=== PATIENT | female | born 1965 | race Caucasian/White ===

== ENCOUNTER 2024-10-13 10:45 | Outpatient (AMB) | payer BC, SELFPAY ==
--- NOTE | 2024-10-13 11:17 | HO.SPINEOV ---
Intake Visit Reasons: severe stenosis Intake Note: Ms. Carey Heard is here today c/o upper back and neck pain. MRI done @ [facility] (brought disc). Capacity Planning Analyst Required: No Assessment & Plan Assessment & Plan (1) Cervical radiculopathy: Code(s): M54.12 - Radiculopathy, cervical region Category: Medical Plan Dear Awais, Thank you for referring Mrs Carey Heard to our office today. She is a very nice 59-year-old female presents to the office today for evaluation of a chronic pain in the upper part of her back and neck, that has given her intermittent pain, primarily down her left arm historically but more recently going down her right arm as well. Through the years she has generally dealt with this by taking Motrin or anti-inflammatories and just trying to get through it. Unfortunately over the last few months the symptoms have significantly progressed. She is in constant pain when she moves her head side to side. At night she has been waking up with severe pain going down both of her arms. It generally stops at about her wrist but does go through her elbow and her shoulder as it passes down her arm. No specific weakness in the hands or myelopathic complaints. She has not yet done any conservative treatment other than generalized stretching, Motrin, leave and moist heat on her neck. She had an MRI done in the [facility] showing possible spinal cord compression at C4-5 and was sent here urgently. PMH: History of cholecystectomy, high cholesterol, hypothyroidism, hypertension but other than that she is healthy Social hx: She might smoke a few cigarettes a week, does not drink any significant amount of alcohol and will occasionally use a marijuana gummy but nothing regular Medications: Levothyroxine, lisinopril, atorvastatin and an SSRI Allergies: None Physical exam: Patient is awake alert oriented x3, no acute distress but tearful at times, strength is full bilateral upper and lower extremities, gait is normal, tandem gait walking reveals she has excellent balance. Reflexes are normal at the patella Achilles biceps triceps. Babinski's are downgoing. No Rich's sign or clonus in the ankles. Imaging review: Cervical MRI done at [facility] shows multilevel degenerative disc disease at C4-5, C5-6 and C6-7. She has moderate to severe stenosis at C4-5 and C5-6. There is bilateral neuroforaminal stenosis at both of these levels. There is neuroforaminal narrowing of the left C6-7. There is question of a cord signal change on the left in the dorsal column just behind the body of C5. Impression: 59-year-old female with chronic neck and upper back pain with bilateral upper extremity cervical radiculopathy. The pain has been coming on for years and significantly affects her quality of life. She was very active prior to all of this starting she has had to curtail many of the activities that make her life enjoyable. I suspect this is coming from C4-5 and C5-6 as these are the worst of the 3 areas that she has in the cervical spine that look degenerative. There is question of spinal cord signal change behind the body of C5 that maybe myelopathic, but on exam and history, there is no myelopathy. This just could be artifact or she is asymptomatic from it. Right now the main issue is pain and discomfort which is generally coming from the nerve roots as they exit the spine. She has just started the process of conservative treatment so I think we should at least let her go through the physical therapy and see how that goes but I did tell her that I anticipate at some point she may need an operation to fix the degenerative discs. I would like to see her back in 6 weeks after she does physical therapy and we can reassess. In the interim I will review the imaging with Dr. Maldonado to see if we can better isolate a surgical target if she ends up needing surgery. Thank you for allowing us to care for your patient. The total time spent with this visit with this patient was 45 minutes reviewing history, physical exam, service imaging review, and implementation of treatment plan or further diagnostic testing Gavino Maldonado MD,PhD [facility] Coding Level of Care Code New Pt Level 4 (15670) Diagnoses Cervical radiculopathy M54.12
--- OUTSIDE RECORDS SUMMARY | 2024-10-13 11:31 | XMS_ITS | Clinical Summary ---
Author Organization [facility] Address [address] [place] [address] Care Team Providers Care Cardiac Specialist Name Role Phone Pcp, No Primary Care Provider Unavailabl e Allergies No known active allergies Medications PARoxetine (PAXIL) 40 MG tablet Take 40 mg by mouth every morning. Active Social History Tobacco Use Types Packs/Day Years Used Date Smoking Tobacco: Some Days Comments Unknown Sex and Gender Information Value Date Recorded Sex Assigned at Not on file Legal Sex Female 12:27 PM EST Gender Identity Not on file Sexual Orientation Not on file Last Filed Vital Signs Vital Sign Reading Time Taken Comments Blood Pressure 157/87 05/28/2017 12:40 PM EST Pulse 77 05/28/2017 12:40 PM EST Temperature 37.1 ??C (98.8 ??F) 05/28/2017 12:[address] Respiratory Rate - - Oxygen Saturation 98% 05/28/2017 12:40 PM EST Inhaled Oxygen Concentration - - Weight 71.7 kg (158 lb) 05/28/2017 12:40 PM EST Height - - Body Mass Index - - Plan of Treatment Health Maintenance Due Date Last Done Comments Hepatitis C Virus Screening 1966 HIV Screening 1979 DTaP/Tdap/Td Vaccines (1 - Tdap) 1985 Hepatitis B Vaccines (1 of 3 - 19+ 3-dose series) 06/1984 Pap Smear (Ages 21-65) 1987 Mammogram 2006 Colonoscopy 2011 Pneumococcal Vaccines 50+ (1 of 1 - PCV) 01/03/2016 Zoster (Shingles) Vaccine (1 of 2) 01/03/2016 COVID-19 Vaccine ( - 2023-25 season) 2024 Influenza Vaccine 2025 Insurance [facility] - HMO Care Teams Cardiac Specialist Relationship Specialty Start Date End Date Pcp, No PCP - General General Medicine 05/28/17
--- OUTSIDE RECORDS SUMMARY | 2024-10-13 11:31 | XMS_ITS | Encounter Summary ---
Author Organization [facility] Address [address] [place] [address] Care Team Providers Care Mixing Plant Dumper Name Role Phone Pcp, No Primary Care Provider Unavailabl e Reason for Visit * Reason Onset Date Comments Follow-up 05/31/2017 cc, lvm Encounter Details Date Type Department Care Team (Late st Contact Info) Description 05/31/2017 Telephone [facility] [address] [phone] Nicolette Laura, [address] [place] [address] Follow-up (cc, lvm) Social History Tobacco Use Types Packs/Day Years Used Date Smoking Tobacco: Some Days Comments Unknown Sex and Gender Information Value Date Recorded Sex Assigned at Not on file Legal Sex Female 12:27 PM EST Gender Identity Not on file Sexual Orientation Not on file documented as of this encounter Plan of Treatment Not on file documented as of this encounter Visit Diagnoses Not on filedocumented in this encounter Care Teams Mixing Plant Dumper Relationship Specialty Start Date End Date Pcp, No PCP - General General Medicine 05/28/17 documented as of this encounter
== END 2024-10-13 12:10 | disposition home or self-care (01) ==
PROVIDERS: PCP Nurse Practitioner Family; Visit Provider Physician Assistant
DX: M54.12 Radiculopathy, cervical region (principal)
CPT/HCPCS: 99204

== ENCOUNTER 2024-11-21 12:35 | Outpatient (REF) | payer OTHER, SELFPAY ==
--- NOTE | ~2024-11-21 | XR_ITS ---
CLINICAL HISTORY: M54.12 - Radiculopathy, cervical region --- Additional Notes or Special Instructions: a p, lateral with flex ext views 4 views cervical spine Comparison: None provided Findings: Normal vertebral body alignment. Alignment is maintained in the sagittal plane with flexion and extension. No acute fractures or dislocation. Is multiple level degenerative disc, facet, and uncovertebral joint change. No prevertebral soft tissue swelling. IMPRESSION: No acute findings. This document has been electronically signed by: Fidencio Silva MD on 11/22/2024 08:46:28
== END 2024-11-21 12:36 | disposition home or self-care (01) ==
LOC: HO.HOSX 12:35
PROVIDERS: PCP Nurse Practitioner Family; Visit Provider Physician Assistant
DX: M54.12 Radiculopathy, cervical region (principal)
CPT/HCPCS: 72050

== ENCOUNTER 2024-11-21 12:35 | Outpatient (AMB) | payer OTHER, SELFPAY ==
--- NOTE | 2024-11-21 13:08 | HO.SPINEOV ---
Intake Visit Reasons: 6 week f/u/? sx Intake Note: Ms. Patino is here today for her 6 week F/u after PT. 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 She is continuing to have severe midline neck pain radiating down both arms and into her subscapular area. She underwent physical therapy now for few weeks but it has only been making things worse. As outlined in my previous note she has done multiple medication trials, she has been taking oxycodone and Tylenol No. 3 very sporadically because she does not like the way it makes her feel. She tried the route of anti-inflammatories but it only gave her significant gastritis issues. She will take Tylenol as needed. Dr. Maldonado and I sat down and reviewed her imaging again. Her MRI [place] and her x-ray done here at [facility] shows multilevel degenerative disc disease in the cervical spine. Because she has bilateral arm pain, we think that the 2 levels that are indicated for surgery would be C4-5 and C5-6 as those are both areas that have bilateral neuroforaminal stenosis and central canal stenosis with cord signal change. We consider doing C6-7, but there is only foraminal narrowing on the left and in light of her bilateral arm pain we think that we can get most of what we need to accomplished with just doing C4-5 and C5-6. The patient is agreeable. She is very tearful and this has been a significant alteration in her quality of life. She has done all the conservative management that we can ask of her. We have tentatively booked her for anterior cervical fusion C4-5 and C5-6 on December 31. The patient was given risk and benefits of surgery including but not limited to infection, hematoma, nerve injury, durotomy, weakness, persistent pain. We discussed that if undergoing anterior cervical fusion there may be trachea or esophageal injury, hoarseness, or difficulty swallowing. There is a risk of pseudoarthrosis or instrumentation failure if undergoing cervical fusion. We also reviewed the option to continue with conservative treatment and patient wishes to proceed with surgery. They are aware they should stop NSAIDs 7 days prior to surgery. All questions were answered to the best of our ability. If there is anything about this patient's medical history that we have overlooked or concerns you have about us proceeding with surgery we would appreciate any input you can offer Total amount of time spent in this visit was 20 minutes in discussion of symptoms, cervical MRI and x-ray imaging results and subsequent plan of care Gavino Maldonado MD,PhD [facility] Orders: Orders XR cervical spine 4V Today M54.12 - Radiculopathy, cervical region Coding Level of Care Code Est Pt Level 3 (84267) Diagnoses Cervical radiculopathy M54.12
== END 2024-11-21 14:27 | disposition home or self-care (01) ==
LOC: HO.HNS 12:36
PROVIDERS: PCP Nurse Practitioner Family; Visit Provider Physician Assistant
DX: M54.12 Radiculopathy, cervical region (principal)
CPT/HCPCS: 99213

== ENCOUNTER → 2024-11-21 13:33 | Outpatient (BNV) | payer OTHER, SELFPAY | PROVIDERS: PCP Nurse Practitioner Family; Visit Provider Specialist | DX: M54.12 Radiculopathy, cervical region (principal) | CPT/HCPCS: 72050 ==

== ENCOUNTER 2024-12-31 05:55 | Day surgery (SDC) | payer OTHER, SELFPAY ==
--- OUTSIDE RECORDS SUMMARY | 2024-12-16 13:40 | XMS_ITS | Encounter Summary ---
Author Organization [facility] Address [address] [place] [address] Care Team Providers Care Linen Room Supervisor Name Role Phone Pcp, No Primary Care Provider Unavailabl e Reason for Visit * Reason Onset Date Comments Follow-up 05/31/2017 cc, lvm Encounter Details Date Type Department Care Team (Late st Contact Info) Description 05/31/2017 Telephone [facility] [address] [phone] Nicolette Laura, [address] [place] [address] Follow-up (cc, lvm) Social History Tobacco Use [...] on filedocumented in this encounter Care Teams Linen Room Supervisor Relationship Specialty Start Date End Date Pcp, No PCP - General General Medicine 05/28/17 documented as of this encounter
[2024-12-17 13:09] VITALS: BP 109/65; PULSE 65; RESP 18; O2SAT 99; BMI 23.3
--- NOTE | 2024-12-17 13:28 | HO.ANESPROP2 ---
Documented by User: Marisol Santoyo NP 12/30/24 13:22 HPI - Anesthesia Eval Consult details Narrative: 59 yr old female for C4-5, C5-6 Ant Cerv Discectomy w/ fusion No CP/SOB with ADLs, exercise limited 2/2 neck pain. No recent illness. [facility] Active Problems Active Problems: All Active Problems Cervical radiculopathy (Acute) Past Medical History Medical History Arthritis Family history of multiple sclerosis Depression Lumbar radiculopathy Hyperlipidemia Hypothyroid Cervical stenosis of spine HTN (hypertension) Chronic back pain NORMA (generalized anxiety disorder) Functional capacity: independent ambulation Family History Family history of problems with anesthesia: No Surgical History Surgical History H/O colonoscopy Hx laparoscopic cholecystectomy History of Problems with Anesthesia: No Social History Social History Are you a primary care connector to a significant other at home: No Do you presently have visiting nurse or other home services: No Comment: advised of trip hazard Patient Tobacco Use Status: Former Tobacco user Tobacco use type: Cigarette Cigarettes Per Day: 10 Years Smoked: 40 Smoked in Last 30 Days: Yes Use of substances other than those prescribed or required for medical reasons: Yes Substance Use Type Other:: gummies Substance Use Frequency: Occasionally Have you been hit, kicked, punched, or otherwise hurt by someone within the past year? If so, by whom?: No Spiritual Healthcare Practices: no Yazdanism Healthcare Practices: no Cultural Healthcare Practices: no Are you DNR?: No Advance Directives Information Provided: Yes (as above noted) Advance Directives on File: No FDLMP: n/a Poor oral hygiene: No (uses Fixodent) Meds Allergies Allergy/AdvReac Type Severity Reaction Status Date / Time amoxicillin Allergy Intermediate Vomiting Verified 12/31/24 06:09 Home Medications ?Medication ?Instructions ?Recorded ?Confirmed ?Last Taken ?Type atorvastatin 10 mg tablet 10 mg PO BEDTIME 12/16/24 12/31/24 Unknown History cholecalciferol (vitamin D3) 125 125 mcg PO QAM 12/16/24 12/31/24 Unknown History mcg (5,000 unit) tablet (Vitamin D3) desvenlafaxine succinate 50 mg 100 mg PO QAM 12/16/24 12/31/24 Unknown History tablet,extended release 24 hr diazepam 5 mg tablet 2.5 - 5 mg PO BID PRN muscle spasm 12/16/24 12/31/24 12/31/24 04:30 History estradiol 0.1 mg/24 hr semiweekly 1 patch transdermal 2XW 12/16/24 12/31/24 Unknown History transdermal patch (Harini) levothyroxine 50 mcg tablet 50 mcg PO QAM 12/16/24 12/31/24 12/31/24 04:30 History lisinopril 5 mg tablet 5 mg PO QAM 12/16/24 12/31/24 Unknown History multivitamin 1 tab PO QAM 12/16/24 12/31/24 Unknown History oxycodone 5 mg tablet 5 mg PO Q6H PRN pain 12/16/24 12/31/24 Unknown History trazodone 50 mg tablet 25 - 50 mg PO BEDTIME PRN Anxiety 12/16/24 12/31/24 Unknown History acetaminophen 300 mg-codeine 60 mg 1 tab PO Q6H PRN Pain 12/17/24 12/31/24 Unknown History tablet acetaminophen 500 mg tablet 500 mg PO Q6H PRN Pain 12/17/24 12/31/24 Unknown History Exam Height,Weight and Vital Signs: Height 5 ft 5 in Weight 63.503 kg Last Vital Signs Pulse 65 12/17/24 13:09 Resp 18 12/17/24 13:09 BP 109/65 12/17/24 13:09 Pulse Ox 99 12/17/24 13:09 O2 Del Method Room Air 12/17/24 13:09 Airway Mallampati Class: II TM Dist: >3cm Neck ROM: Limited (backward extension) Denture: Upper Loose/Missing/Broken Teeth: Yes and Lower (M molars b/l) Heart: RRR Lungs: CTAB Assessment and Plan Final Anesthetic Review Family History of Problems with Anesthesia: No History of Problems with Anesthesia: No Documented by User: Candice Bills MD 12/31/24:07 [facility] Past Medical History Medical History Arthritis Family history of multiple sclerosis Depression Lumbar radiculopathy Hyperlipidemia Hypothyroid Cervical stenosis of spine HTN (hypertension) Chronic back pain NORMA (generalized anxiety disorder) Surgical History Surgical History H/O colonoscopy Hx laparoscopic cholecystectomy Social History Social History Are you a primary care connector to a significant other at home: No Do you presently have visiting nurse or other home services: No Comment: advised of trip hazard Patient Tobacco Use Status: Former Tobacco user Tobacco use type: Cigarette Cigarettes Per Day: 10 Years Smoked: 40 Smoked in Last 30 Days: Yes Use of substances other than those prescribed or required for medical reasons: Yes Substance Use Type Other:: gummies Substance Use Frequency: Occasionally Have you been hit, kicked, punched, or otherwise hurt by someone within the past year? If so, by whom?: No Spiritual Healthcare Practices: no Yazdanism Healthcare Practices: no Cultural Healthcare Practices: no Are you DNR?: No Advance Directives Information Provided: Yes (as above noted) Advance Directives on File: No FDLMP: n/a Poor oral hygiene: No (uses Fixodent) Meds Allergies Allergy/AdvReac Type Severity Reaction Status Date / Time amoxicillin Allergy Intermediate Vomiting Verified 12/31/24 06:09 Home Medications ?Medication ?Instructions ?Recorded ?Confirmed ?Last Taken ?Type atorvastatin 10 mg tablet 10 mg PO BEDTIME 12/16/24 12/31/24 Unknown History cholecalciferol (vitamin D3) 125 125 mcg PO QAM 12/16/24 12/31/24 Unknown History mcg (5,000 unit) tablet (Vitamin D3) desvenlafaxine succinate 50 mg 100 mg PO QAM 12/16/24 12/31/24 Unknown History tablet,extended release 24 hr diazepam 5 mg tablet 2.5 - 5 mg PO BID PRN muscle spasm 12/16/24 12/31/24 12/31/24 04:30 History estradiol 0.1 mg/24 hr semiweekly 1 patch transdermal 2XW 12/16/24 12/31/24 Unknown History transdermal patch (Harini) levothyroxine 50 mcg tablet 50 mcg PO QAM 12/16/24 12/31/24 12/31/24 04:30 History lisinopril 5 mg tablet 5 mg PO QAM 12/16/24 12/31/24 Unknown History multivitamin 1 tab PO QAM 12/16/24 12/31/24 Unknown History oxycodone 5 mg tablet 5 mg PO Q6H PRN pain 12/16/24 12/31/24 Unknown History trazodone 50 mg tablet 25 - 50 mg PO BEDTIME PRN Anxiety 12/16/24 12/31/24 Unknown History acetaminophen 300 mg-codeine 60 mg 1 tab PO Q6H PRN Pain 12/17/24 12/31/24 Unknown History tablet acetaminophen 500 mg tablet 500 mg PO Q6H PRN Pain 12/17/24 12/31/24 Unknown History Assessment and Plan Assessment Anesthesia Assessment: Anesthesia Plan Discussed and Chart Reviewed Final Anesthetic Review NPO: Yes ASA Class: II Final Preanesthetic Review: No Changes in Pt Med Stat, Meds/Allgs Chart Reviewed, Consent Obtained/Reviewed and Anes Risks/Benef Reviewed Patient Risk: Low Procedure Risk: Intermediate Anesthetic Plan Anesthetic Plan: GA Disposition: Standard PACU
[2024-12-31] VITALS (16 sets, daily range): BP systolic 98–183; BP diastolic 54–85; PULSE 56–76; RESP 12–19; TEMP 36.1–36.5; O2SAT 95–100; BMI 23.6
--- NOTE | ~2024-12-31 | FL_ITS ---
EXAMINATION: FL GUIDANCE ONLY HISTORY: C4-6 ACDF COMPARISON: Correlation is made with plain films of the cervical spine dated 11/21/2024. TECHNIQUE: Fluoroscopy time: 6.6 seconds. Cumulative Dose: 1.2578 mGy. DAP: 0.4606 mGym2 Images: 2. FINDINGS: Fluoroscopic spot films of the cervical spine demonstrate anterior cervical disc fusion at C4-5 and C5-6. FL/FL guidance in OR IMPRESSION: Fluoroscopy during procedure. Please see procedure report for additional information. Electronically signed by: Chico Jacob MD 12/31/2024 09:49 AM EDT
[2024-12-31] MEDS: Lactated Ringers 1,000 ML 100 ML IVCONT (06:34)
--- NOTE | 2024-12-31 07:02 | P.HPSUR_ITS ---
Pre-Procedural Eval Section A - 24 Hr Update-Section A only Date of Service: 12/31/24 The patient is an INPATIENT: No Changes since office visit: No Cold of Flu in the past 2 weeks, No New Medical Problems, No Changes in Medication and No Patient answered all questions The patient has been examined within 24 hours of the surgical procedure. The History & Physical has been completed within 30 days and I have reviewed it.: No Section B - Complete if H&P > 30 days Chief Complaint: Radiculopathy, cervical region Allergies: Allergies Allergy/AdvReac Type Severity Reaction Status Date / Time amoxicillin Allergy Intermediate Vomiting Verified 12/31/24 06:09 Review of Systems Sugical H&P ROS: Negative: Constitution, Cardiovascular, Respiratory, Neurological, Psychiatric, Hem-Onc, Allergic/Immunologic, Gastrointestinal, Genitourinary, Musculoskeletal, Integumentary, Endocrine and Eyes/Ears/Nose/Throat Exam Surgical H&P Exam: Normal: HEENT, Normal: Heart, Normal: Lungs, Normal: Extremities, Normal: Abdomen, Normal: Skin and Normal: Neurological (awake, a lert,oriented x 3 ) Plan Diagnosis/Plan: Unchanged C4-5, C5-6 Anterior cervical diskectomy and fusion Time Spent With Patient Time: Total time managing care of this patient today __5__ minutes.
--- NOTE | 2024-12-31 07:04 | PM.DS ---
DS: Providers Provider Date of Service: 12/31/24 Date of discharge: 12/31/24 Primary care physician: Awais Peters NP Admitting clinician: Tyrel Maldonado DS: Diagnosis Discharge Diagnosis (1) Cervical radiculopathy: Status: Acute DS: Summary Time Attestation Discharge Coordination Time (in mins): 5 Quality: Safe Use of Opioids Does Pt have an Active Cancer Diagnosis on the Problem List?: No Quality: Stroke Does the patient have a stroke diagnosis?: No Physical Exam Vital Signs: Vital Signs: Last Vital Signs Temp 97.7 F 12/31/24 06:18 Pulse 56 12/31/24 06:18 Resp 16 12/31/24 06:18 BP 98/54 L 12/31/24 06:18 Pulse Ox 99 12/31/24 06:18 O2 Del Method Room Air 12/31/24 06:18 BMI result Body Mass Index 23.6 Discharge Plan Discharge Patient Disposition: Home, Self-Care Referrals: Awais Peters NP [Primary Care Provider, Family Practice] - 1 Week Discharge Medications: New docusate sodium [Colace] 100 mg capsule 100 mg PO BID Qty: 20 0RF oxycodone 5 mg tablet 5 mg PO Q4H PRN (Reason: pain) Qty: 30 0RF Rx Instructions: Partial Fill upon patient request. Continued trazodone 50 mg tablet 25 - 50 mg PO BEDTIME PRN (Reason: Anxiety) atorvastatin 10 mg tablet 10 mg PO BEDTIME estradiol [Harini] 0.1 mg/24 hr patch semiweekly 1 patch transdermal 2XW levothyroxine 50 mcg tablet 50 mcg PO QAM lisinopril 5 mg tablet 5 mg PO QAM diazepam 5 mg tablet 2.5 - 5 mg PO BID PRN (Reason: muscle spasm) oxycodone 5 mg tablet 5 mg PO Q6H PRN (Reason: pain) desvenlafaxine succinate 50 mg tablet extended release 24 hr 100 mg PO QAM multivitamin Tablet 1 tab PO QAM cholecalciferol (vitamin D3) [Vitamin D3] 125 mcg (5,000 unit) Tablet 125 mcg PO QAM acetaminophen 500 mg Tablet 500 mg PO Q6H PRN (Reason: Pain) acetaminophen-codeine 300-60 mg Tablet 1 tab PO Q6H PRN (Reason: Pain) Discharge Orders: Discharge Order (Routine); Ordered 12/31/24 Ordered By: Gavino Cedillo Diet: Advance to usual diet Activity on Discharge: As tolerated Activity Restrictions/Additional Instructions: After your spinal surgery we ask you to observe the following restrictions/guidelines: Activity: It is normal to feel some discomfort as you increase your activity, but that will improve with time. We ask you avoid heavy lifting or acitivities that cause pain. As a general rule, 8lbs is a safe limit for lifting right after surgery. Walk as much as you feel comfortable but not to exhaustion. You will feel extra tired the first few days after surgery. Stay well hydrated. It is OK to walk up and down stairs You may return to driving when you are off narcotics (such as vicodin, oxycodone, dilaudid, etc), and you are back to normal functional capacity. If you have any concerns please check with office before driving. Return to work is specific to each patient and each surgery, so please speak with your doctor/PA at first follow up. Please bring paperwork such as FMLA at that time if you need it filled out. Medications: For optimum pain control, it is best to start with a combination of 500 mg of Tylenol every 4 hours with 600 mg of Motrin every 8 hours, and use narcotics as needed in between for breakthrough pain. We will give you a short supply of narcotics after surgery (usually one weeks worth). If you need more please call the office but do not use more than prescribed. You will need to give our office 48 hours notice if you need narcotics refilled and we do not fill narcotics on weekends or evenings. If you are on a narcotic, it is a good idea to take a stool softener such as colace or senna to avoid constipation If you take blood thinner such as aspirin, Plavix, Coumadin, Effient, Eliquis etc for conditions such as Afib, DVT, Pulmonary embolus, coronary disease, stents etc please speak with your surgeon about specific details as to when you can resume these medications. You can resume NSAIDs on post op day 1 (eg: Motrin, Naproxen, etc). Follow up: Please call the office, , after surgery to arrange a 3 week follow up for wound check. Wound Care: You may remove your dressing on the first day after surgery. ?You may ?leave open to air. Please do not remove the steri strips underneath. they will fall off on their own in one week. IT IS NORMAL FOR THE WOUND TO OOZE OR BE BLOODY FOR A FEW DAYS AFTER SURGERY. ?IF THIS HAPPENS JUST PLACE NEW DRESSING OVER IT TO AVOID STAINING CLOTHES. You may shower on post op day # 1 We ask that you do not let the water soak the wound. If it does get wet, just towel dry lightly. Please do not scrub your incision or place any type of chemical/ointment on the wound. No tub baths, pools or jacuzzis for one month. If you have any leaking or redness from your wound, or fevers, please call office Print Language: Romanian
--- NOTE | 2024-12-31 09:29 | W.PM.OPN ---
Operative Note Operative Note Date of Service: 12/31/24 Narrative: Preoperative Diagnosis: Neck pain and bilateral cervical radiculopathy Procedure: C4-5, C5-6 Anterior discectomy, arthrodesis and implantation cage ; C4-C6 anterior instrumentation ; local autograft; microscope Informed Consent was obtained for this operation. I have explained the nature, purpose and benefits of the operation. I have discussed the risks and benefit of the operation including possible complications or adverse events with patient/family. Alternative(s) were discussed with the patient with their relative benefits and risks as well as the consequences of not accepting the operation were included in obtaining consent. Surgeon: DEEPA JARVIS MD, PHD Procedure Assisted By: kristina Quiñones Description of Procedure: This patient is suffering from chronic neck pain and bilateral cervical radiculopathy. An MRI shows severe degenerative disc disease with bilateral foraminal stenosis at C4-5 and C5-6. The C6-7 disc space is also degenerated but only shows compression of the left side. Therefore it was decided to only fuse the C4-C6 levels. The patient was offered an anterior diskectomy and fusion of these levels. The procedure complications were explained. The patient was consented. The patient was brought to the operating room and endotracheally intubated. The patient was put in supine position with slight extension of the neck. Prep and drape was done followed by timeout. A mid cervical incision was made followed by opening of the platysma. The prevertebral fascia was reached following the natural planes while the physician intellectual property legal assistant provided manual retraction. The prevertebral fascia was opened to expose the disc space. A spinal needle was placed in the disk space to confirm the correct level with xray. The longus colli muscles were released bilaterally and a self retaining retractor was inserted. An initial diskectomy was done of C4-5 and C5-6. There was severe degeneration with most of the disc being replaced by bone spurs. Two [place] pins were placed in the C4 and C5 vertebral bodies and distraction was give over the interspace. The discectomy was completed toward the posterior annulus of the disc. The microscope was brought in. The remainder of the discectomy was completed. The posterior ligament was opened and resected to expose the underlying dura. Large osteophytes were resected from the body of C4 on C5 to decompress the underlying spinal cord and saved for autograft. Bilateral foraminotomies were done. Severe bilateral foraminal stenosis was present and released. The endplates were prepared after which a 6 mm cage filled with autograft was inserted into the disc space. A separate attached plate was locked down with 2 x 14 mm screws as anterior instrumentation. Then attention was turned to the C5-6 disc space. The [place] pins was placed in the body of C6 and distraction was giving over the interspace. The diskectomy was completed towards the posterior longitudinal ligament. The hypertrophied posterior longitudinal ligament was opened and resected to expose the underlying dura. Again large osteophytes were resected from the bodies of C5-C6 to decompress the underlying spinal cord not safe for autograft. Bilateral foraminotomy was done to release severe bilateral foraminal stenosis. The endplates were prepared of the which is 6 mm cage was inserted into the disc space. A separate attached plate was locked down with 2 x 14 mm screws as anterior instrumentation. Final x-rays in AP and lateral projection showed a satisfactory position of the implant. The C5-6 implant was slightly eccentric towards the left side. The physician intellectual property legal assistant took over. The [place] pin was removed. Hemostasis was done. He closed the incision in 2 layers with a 3-0 Vicryl. Steri-Strips used to approximate incision. An OpSite with Tegaderm was used to cover the incision. All sponge and needle counts were correct. Patient was extubated and transported in stable is to recovery room. Anesthesia: General Estimated Blood Loss (ml): 35 Duration of Surgery: 100 minutes Postoperative Plan: Discharge home Complications: None
[2024-12-31] MEDS: oxyCODONE HCl Immed Release 5 MG TABLET PO ×2 (10:26→11:25)
--- NOTE | 2024-12-31 12:11 | PC.NURSE ---
DR. RIOS Garcia CAME AND REASSESSED PATIENT IN DC AREA. PATIENT STATES FEELING BETTER, PATIENT BEING DC'D HOME.
== END 2024-12-31 12:17 | disposition home or self-care (01) ==
PROVIDERS: PCP Nurse Practitioner Family; Visit Provider Neurological Surgery
PROC: (CPT 22551; principal; 2024-12-31 07:30)
DX: M50.121 Cervical disc disorder at C4-C5 level with radiculopathy (principal); M50.122 Cervical disc disorder at C5-C6 level with radiculopathy; G89.29 Other chronic pain; M48.02 Spinal stenosis, cervical region; F33.8 Other recurrent depressive disorders; I10 Essential (primary) hypertension; E87.5 Hyperkalemia; Z79.899 Other long term (current) drug therapy; Z79.891 Long term (current) use of opiate analgesic; Z87.891 Personal history of nicotine dependence
CPT/HCPCS: 22551; 22552; 22853; 20936; 22845; C1713; C1889; J0131; J1100; J2003; J2250; J2405; J2704; J3010; J3374

== ENCOUNTER → 2024-12-31 05:55 | Outpatient (BNV) | payer OTHER, SELFPAY | PROVIDERS: PCP Nurse Practitioner Family; Visit Provider Neurological Surgery | DX: M54.12 Radiculopathy, cervical region (principal) | CPT/HCPCS: 20930; 20936; 22551; 22552; 22845; 22853; 99499 ==

== ENCOUNTER 2025-01-01 10:23 | Emergency (ER) | payer OTHER, SELFPAY ==
[2025-01-01] VITALS (7 sets, daily range): BP systolic 138–182; BP diastolic 58–110; PULSE 60–84; RESP 12–19; TEMP 36.6; O2SAT 95–100; BMI 24.4
--- NOTE | 2025-01-01 11:09 | ED.NECK ---
HPI - Neck Pain/Injury General Chief Complaint: Neck Pain/Injury Stated Complaint: neuro Time Seen by Provider: 01/01/25 10:52 Source: patient Mode of arrival: EMS Limitations: no limitations History of Present Illness ED Provider: Dr. Elijah Wick HPI Narrative: 59-year-old female with a history of depression, lumbar radiculopathy, hyperlipidemia, hypothyroidism, cervical stenosis of the spine, hypertension, chronic back pain, anxiety who had a C4-5, C5-6 Anterior discectomy, arthrodesis and implantation cage ; C4-C6 anterior instrumentation ; local autograft; microscope done on 12/31/[address] Vargas's here at [facility]. The patient states that when she got home from the surgery she developed swelling/pressure and pain in her neck. She states she is having difficulty drinking and eating secondary to the pain and states the pain was severe and she was unable to sleep. She states she took Tylenol, ibuprofen and oxycodone with no relief for pain. She also experienced pain that went down both for arms. Prior to the surgery she states she was having tingling sensation in both arms but never pain. Pain got worse therefore she went to the emergency department at [facility]. Patient was receiving Dilaudid for her pain. At the time of presentation of the area emergency department she states that her pain was greater than 10/10. The CT showed prominent anterior epidural soft tissue and moderate to severe flattening in narrowing of the thecal sac in the mid and lower cervical spine, suspicious for epidural soft tissue edema/inflammation/infection or an epidural hematoma; moderate retroverted in her she will/cervical paravertebral soft tissue, anterior parapharyngeal/parapharyngeal soft tissue and lower anterior right neck soft tissue swelling and stranding suggesting postop in his soft tissue edema/inflammation says possible infection; and postoperative gas in the lower neck soft tissue. MR impression revealed mild anterior epidural soft tissue prominence up to 4 mm thick, suggesting epidural soft tissue swelling or small amount of epidural hematoma. At C5-C6 level there is severe spinal central canal stenosis and severe flattening of the thecal sac and the spinal cord. At C4-C5 and C6-C7 levels there is moderate spinal central canal stenosis with moderate flattening of the thecal sac and spinal cord. Lower C5 levels in the left side of the spinal cord, there is a 3 mm T2 hyper intensity suggesting focal spinal cord contusion Related Data Home Medications ?Medication ?Instructions ?Recorded ?Confirmed atorvastatin 10 mg tablet 10 mg PO BEDTIME 12/16/24 12/31/24 cholecalciferol (vitamin D3) 125 125 mcg PO QAM 12/16/24 12/31/24 mcg (5,000 unit) tablet (Vitamin D3) desvenlafaxine succinate 50 mg 100 mg PO QAM 12/16/24 12/31/24 tablet,extended release 24 hr diazepam 5 mg tablet 2.5 - 5 mg PO BID PRN muscle spasm 12/16/24 12/31/24 estradiol 0.1 mg/24 hr semiweekly 1 patch transdermal 2XW 12/16/24 12/31/24 transdermal patch (Harini) levothyroxine 50 mcg tablet 50 mcg PO QAM 12/16/24 12/31/24 lisinopril 5 mg tablet 5 mg PO QAM 12/16/24 12/31/24 multivitamin 1 tab PO QAM 12/16/24 12/31/24 oxycodone 5 mg tablet 5 mg PO Q6H PRN pain 12/16/24 12/31/24 trazodone 50 mg tablet 25 - 50 mg PO BEDTIME PRN Anxiety 12/16/24 12/31/24 acetaminophen 300 mg-codeine 60 mg 1 tab PO Q6H PRN Pain 12/17/24 12/31/24 tablet acetaminophen 500 mg tablet 500 mg PO Q6H PRN Pain 12/17/24 12/31/24 Previous Rx's ?Medication ?Instructions ?Recorded docusate sodium 100 mg capsule 100 mg PO BID #20 caps 12/31/24 (Colace) oxycodone 5 mg tablet 5 mg PO Q4H PRN pain #30 tabs 12/31/24 famotidine 20 mg tablet (Pepcid) 20 mg PO BID #14 tabs 01/01/25 gabapentin 300 mg capsule 300 mg PO TID #90 caps 01/01/25 hydromorphone 2 mg tablet 2 mg PO Q4H PRN pain #40 tabs 01/01/25 methylprednisolone 4 mg tablets in 4 mg PO DAILY #21 ea 01/01/25 a dose pack Allergies Allergy/AdvReac Type Severity Reaction Status Date / Time amoxicillin Allergy Intermediate Vomiting Verified 01/01/25 10:56 Review of Systems Review of Systems: Yes all other systems are reviewed and are negative [facility] Past Medical History Medical History (Updated 01/01/25 @ 15:47 by Elijah Wick MD) Arthritis Family history of multiple sclerosis Depression Lumbar radiculopathy Hyperlipidemia Hypothyroid Cervical stenosis of spine HTN (hypertension) Chronic back pain NORMA (generalized anxiety disorder) Surgical History H/O colonoscopy Hx laparoscopic cholecystectomy Social History Social History Are you a primary sub acute care nurse to a significant other at home: No Do you presently have visiting nurse or other home services: No Comment: advised of trip hazard Patient Tobacco Use Status: Former Tobacco user Tobacco use type: Cigarette Cigarettes Per Day: 10 Years Smoked: 40 Smoked in Last 30 Days: No Use of substances other than those prescribed or required for medical reasons: No Advance Directives: No Advance Directives Information Provided: Yes Physical Exam Vital Signs: Vital Signs: Last Vital Signs Temp 97.9 F 01/01/25 10:52 Pulse 74 01/01/25 14:05 Resp 12 01/01/25 14:05 BP 157/110 H 01/01/25 14:05 Pulse Ox 98 01/01/25 14:05 O2 Del Method Room Air 01/01/25 14:05 BMI result Body Mass Index 24.4 Vital signs revealed an elevated blood pressure otherwise unremarkable Exam: General: Awake, alert in no distress Head: Normocephalic, atraumatic EENT: PERRL, Lids normal, sclera normal, conjunctiva normal, nose normal , ears normal, throat without erythema or exudates Neck: Surgical dressing is intact, patient has soft tissue swelling and ecchymosis to her anterior neck which is tender to palpation Lung: breath sounds symmetric, no wheezing, rales or rhonchi Chest: symmetric movement, nontender Heart: regular rate and rhythm, normal S1, S2 no murmurs or rubs Abdomen: soft, non-tender, nondistended, normal bowel sounds Back: no vertebral tenderness, no CVAT Extremities: no deformities, moves all extremities symmetrically Neuro: Awake, alert, oriented, normal speech, cranial nerves intact, moves all extremities symmetrically Psych: Pleasant, cooperative Medications Administered Discontinued Medications Generic Name Dose Route Start Last Admin Trade Name Freq PRN Reason Stop Dose Admin Diphenhydramine HCl 25 mg 07/31/25 12:37 01/01/25 12:58 Diphenhydramine Hcl 50 Mg/Ml Vial IVPUSH 01/01/25 12:38 25 mg ONCE ONE Administration Hydromorphone HCl 1 mg 01/01/25 11:00 01/01/25 11:20 Hydromorphone Hcl 1 Mg/Ml Syringe IVPUSH 01/01/25 11:01 1 mg ONCE STA Administration Protocol Hydromorphone HCl 1 mg 01/01/25 12:37 01/01/25 12:58 Hydromorphone Hcl 1 Mg/Ml Syringe IVPUSH 01/01/25 12:38 1 mg ONCE STA Administration Protocol Lactated Ringer's 1,000 mls @ 999 mls/hr 01/01/25 13:22 01/01/25 13:40 Lr IV 01/01/25 14:22 999 mls/hr .Q1H1M STA Administration Metoclopramide HCl 10 mg 01/01/25 12:37 01/01/25 12:59 Metoclopramide Hcl 10 Mg/2 Ml Vial IVPUSH 01/01/25 12:38 10 mg ONCE STA Administration Ondansetron HCl 4 mg 01/01/25 10:51 01/01/25 10:55 Ondansetron Hcl 4 Mg/2 Ml Vial IVPUSH 01/01/25 10:52 4 mg ONCE ONE Administration Medical Decision Making Medical Decision Making MDM Narrative: 59-year-old female with a history of depression, lumbar radiculopathy, hyperlipidemia, hypothyroidism, cervical stenosis of the spine, hypertension, chronic back pain, anxiety who had a C4-5, C5-6 Anterior discectomy, arthrodesis and implantation cage ; C4-C6 anterior instrumentation ; local autograft; microscope done on 12/31/[address] Vargas's here at [facility]. The patient states that when she got home from the surgery she developed swelling/pressure and pain in her neck. She states she is having difficulty drinking and eating secondary to the pain and states the pain was severe and she was unable to sleep. She states she took Tylenol, ibuprofen and oxycodone with no relief for pain. She also experienced pain that went down both for arms. Prior to the surgery she states she was having tingling sensation in both arms but never pain. Pain got worse therefore she went to the emergency department at [facility]. Patient was receiving Dilaudid for her pain. At the time of presentation of the area emergency department she states that her pain was greater than 10/10. Vital signs revealed an elevated blood pressure otherwise unremarkable. Physical examination did reveal soft tissue swelling and ecchymosis to her anterior neck, surgical site is intact, no increased warmth or erythema. Differential diagnosis: ?Includes but is not limited to postop hematoma, postop ecchymosis, cellulitis, epidural hematoma, epidural abscess Course: 15:49 The patient was treated with hydromorphone 1 mg IV x3, Zofran 4 mg IV, Reglan 10 mg IV and Benadryl 25 mg IV. The patient is feeling significantly better after this treatment. The patient was evaluated in the emergency department by the neurosurgical physician administrative support assistant Gavino Cedillo and the neurosurgeon Dr. Maldonado. They were able to review the patient's CT and MRI studies. Their impression was that the changes noted by the radiologist were consistent with postoperative changes. The physician administrative support assistant called in prescriptions for pain medications and steroids to a pharmacy [facility]. Since the patient is feeling better, the patient will be discharged home. The patient's surgical site is oozing blood and a sterile gauze dressing was applied over the surgical site. The patient was discharged home with packets of gauze in advised to change the gauze when she soaks through the dressing. Admission/Observation Consideration of admission/observation: Escalation of care including admission/observation considered (Yes) Consult Healthcare Provider Management of the patient was discussed with: Fiberglass Boat Builder (Neurosurgical physician administrative support assistant Gavino Cedillo and neurosurgeon Dr. Maldonado) Independent Historian Clinical information obtained from an independent historian. History obtained from or confirmed by: Spouse External Record Review External record reviewed: Outside ED record ([facility] ED visits) Discharge Plan Discharge Clinical Impression: Neck pain, Hematoma of neck Patient Disposition: Home, Self-Care Additional Instructions: Continue to apply ice for 15-20 minutes 4 to 6 times a day to help reduce the swelling in your neck. Do this for at least 2-3 days. You were treated in the emergency department with Dilaudid (hydromorphone) IV. Apply gauze to the neck wound, change the gauze whenever you soak through the gauze pads. Take the prescription medications as prescribed by the neurosurgical physician administrative support assistant Gavino Cedillo. Please return to the emergency department if your symptoms get worse or if you develop any symptoms that are concerning to you. Prescriptions: No Action hydromorphone 2 mg tablet 2 mg PO Q4H PRN (Reason: pain) Qty: 40 0RF Rx Instructions: 1-2 tablets p.o. q.4 hours p.r.n. pain: Partial fill upon request famotidine [Pepcid] 20 mg tablet 20 mg PO BID Qty: 14 0RF Rx Instructions: Take while on Medrol Dosepak gabapentin 300 mg capsule 300 mg PO TID Qty: 90 11RF methylprednisolone 4 mg tablets,dose pack 4 mg PO DAILY Qty: 21 0RF Rx Instructions: Medrol Dosepak, Take as directed on package trazodone 50 mg tablet 25 - 50 mg PO BEDTIME PRN (Reason: Anxiety) atorvastatin 10 mg tablet 10 mg PO BEDTIME estradiol [Harini] 0.1 mg/24 hr patch semiweekly 1 patch transdermal 2XW levothyroxine 50 mcg tablet 50 mcg PO QAM lisinopril 5 mg tablet 5 mg PO QAM diazepam 5 mg tablet 2.5 - 5 mg PO BID PRN (Reason: muscle spasm) oxycodone 5 mg tablet 5 mg PO Q6H PRN (Reason: pain) desvenlafaxine succinate 50 mg tablet extended release 24 hr 100 mg PO QAM multivitamin Tablet 1 tab PO QAM cholecalciferol (vitamin D3) [Vitamin D3] 125 mcg (5,000 unit) Tablet 125 mcg PO QAM acetaminophen 500 mg Tablet 500 mg PO Q6H PRN (Reason: Pain) acetaminophen-codeine 300-60 mg Tablet 1 tab PO Q6H PRN (Reason: Pain) docusate sodium [Colace] 100 mg capsule 100 mg PO BID Qty: 20 0RF oxycodone 5 mg tablet 5 mg PO Q4H PRN (Reason: pain) Qty: 30 0RF Rx Instructions: Partial Fill upon patient request. Print Language: [place] Leonean
--- NOTE | 2025-01-01 11:35 | PC.NURSE ---
Pt BIBA for anterior neck swelling and b/l arm pain which she describes as severe since cervical neck fusion done here yesterday of c4, c5, c6. Extensive ecchymosis noted to anterior neck as well. States seen at [facility], workup completed including CT and MRI and sent here for further evaluation. Voice noted with higher pitch which is not normal for pt. Airway appears patent and pt denies SOB but states feeling of tightness in airway. Dr Wick aware upon pt arrival and to bedside to assess. Plan to consult with surgical team for further plan of care. Zofran given for c/o nausea and Dilaudid for pain control. now at bedside. NSR on tele. Sat remains high 90s.
--- OUTSIDE RECORDS SUMMARY | 2025-01-01 11:53 | XMS_ITS | Encounter Summary ---
Author Organization [facility] Address [address] [place] [address] Care Team Providers Care Boat Detailer Name Role Phone Pcp, No Primary Care Provider Unavailabl e Reason for Visit * Reason Onset Date Comments Follow-up 05/31/2017 cc, lvm Encounter Details Date Type Department Care Team (Late st Contact Info) Description 05/31/2017 Telephone [facility] [address] [id number] Nicolette Laura, [address] [place] [address] Follow-up (cc, lvm) Social History Tobacco Use [...] on filedocumented in this encounter Care Teams Boat Detailer Relationship Specialty Start Date End Date Pcp, No PCP - General General Medicine 05/28/17 documented as of this encounter
[2025-01-01] MEDS: Lactated Ringers 1,000 ML 999 ML IV (13:40)
--- NOTE | 2025-01-01 14:31 | HO.NEURO.PN ---
Neurosurgery Operative Note Date of Service: 01/01/25 Narrative: Status post anterior cervical diskectomy and fusion yesterday, was brought to the [facility] after being evaluated in the [facility] last night and setting of postoperative neck pain and arm pain. The patient reports that she was feeling similar arm pain than she had before surgery just much more intense. She went there and underwent CT scans and MRIs. There was no evidence of hematoma seen on the CT scan just soft tissue swelling consistent with surgery. The MRI also showed postsurgical changes. She is transferred for evaluation and possible pain management admission. I spoke to her and she is now feeling much better after having had some IV Dilaudid. The arm pain is still intense but not nearly as bad as it was. I examined her, she is awake alert oriented, no acute distress, breathing comfortably, strength is somewhat limited by pain with hand grasp and deltoid flexion but I do not detect any focal motor deficits. She does have tenderness in the posterior cervical spine. Anterior neck does demonstrate some ecchymosis and soft tissue swelling. The areas somewhat tender. The Steri-Strips are still in place in the incision itself is well approximated. Dr. Maldonado and I reviewed the CT/MRI that was done at [facility] this shows excellent placement of the hardware, there is no evidence of soft tissue hematoma, just simple inflammation and swelling. No deviation of the trachea. Impression: 59-year-old female status post 2 level anterior cervical diskectomy and fusion yesterday, went to the emergency room on her 1st postoperative night for pain control, ultimately ended up with an extensive workup including CT and MRI which did not reveal any pertinent findings. In fact, it showed that the placement of the hardware and positioning of the implants looks excellent. There is no evidence of hematoma. As we suspected, what we are dealing with here is just typical postoperative pain that seems to be a bit elevated, probably because of preoperative oxycodone use. I am going to call her in a steroid to help with some of the soft tissue swelling anteriorly, and will include Pepcid just for GI prophylaxis. The patient is aware and can verbalize she is not to take her Motrin while she is on the steroid. Additionally, I will call her and gabapentin to help with the arm pain and oral Dilaudid as an escalated narcotic which we can do for a week or so and then she can transition back to her oxycodone. The patient can be discharged. All the following was reviewed with the attending emergency room doctor as well as attending neurosurgeon Dr. Alexis Maldonado.
== END 2025-01-01 16:09 | disposition home or self-care (01) ==
PROVIDERS: Emergency Provider Emergency Medicine Emergency Medical Services
DX: S10.93XA Contusion of unspecified part of neck, initial encounter (principal); M54.50 Low back pain, unspecified; M54.2 Cervicalgia; R11.0 Nausea; X58.XXXA Exposure to other specified factors, initial encounter; Y93.9 Activity, unspecified; Y92.9 Unspecified place or not applicable; Y99.8 Other external cause status; Z87.891 Personal history of nicotine dependence
CPT/HCPCS: 96361; 96374; 96375; 96376; 99284; J1171; J1200; J2405; J2765; J7120

== ENCOUNTER → 2025-01-01 11:02 | Outpatient (BNV) | payer OTHER, SELFPAY | PROVIDERS: Emergency Provider Emergency Medicine Emergency Medical Services; Visit Provider Physician Assistant | DX: Z48.89 Encounter for other specified surgical aftercare (principal) | CPT/HCPCS: 99024 ==

== ENCOUNTER 2025-01-21 13:50 | Outpatient (AMB) | payer OTHER, SELFPAY ==
--- NOTE | 2025-01-21 14:21 | HO.SPINEOV ---
Intake Visit Reasons: 1st post op Intake Note: Ms. Carey Heard is here today for her 1st post op. [employer] [place] Paper Required: No Allergies amoxicillin Allergy (Intermediate, Verified 01/21/25 14:22) Vomiting Assessment & Plan Assessment & Plan (1) Cervical radiculopathy: Code(s): M54.12 - Radiculopathy, cervical region Category: Medical Plan Procedure: C4-5, C5-6 ACDF Cristy is a pleasant 60 year old female who comes in today for her 1st postoperative appointment after having C4-6 ACDF completed on 12/31/[address] Maldonado. To recap she had a somewhat complicated postoperative course and presented to the [facility] emergency department after returning back home to [place] after surgery. Wendy's subsequently transferred here to the [facility]. She was evaluated by our team, and discharged home in stable condition. She reports that she had fairly severe pain and swelling around her neck directly after surgery. Fortunately, her symptoms have very much so improved overall to about a 50% reduction in overall pain, and increased functional capacity throughout the day. She has been able to get outside, go for walks, and complete basic activities of daily living. She is still not back to driving, and states he still has quite a deal of pain with lateral rotation of her neck. Currently taking ibuprofen for pain alongside gabapentin. She did asked to be kept out of work for another 4 weeks. No new neurological deficits. The patient ambulates well and rises from seated position without difficulty. Her anterior incision site is closed and well healing. I would like to send in a Medrol Dosepak for Cristy. She denies taking the previously sent Rx for Prednisone as she was advised against this by her PCP. I think this will help get her inflammation symptoms under control. I would like to see her back in clinic in 6 weeks for a set of X-rays. She may remain out of work until 01/25/25. Bird Maldonado MD,PhD [facility] Medications: New methylprednisolone PO PER PKG DIR 21 ea 0RF Discontinued methylprednisolone Medrol Dosepak, Take as directed on package Discontinued Reason: Doctor's Order 4 mg PO DAILY 21 ea 0RF Coding Level of Care Code Global (02717) Diagnoses Cervical radiculopathy M54.12
--- OUTSIDE RECORDS SUMMARY | 2025-01-21 14:45 | XMS_ITS | Encounter Summary ---
Author Organization [facility] Address [address] [place] [address] Care Team Providers Care Parachute Inspector Name Role Phone Pcp, No Primary Care Provider Unavailabl e Reason for Visit * Reason Onset Date Comments Follow-up 05/31/2017 cc, lvm Encounter Details Date Type Department Care Team (Late st Contact Info) Description 05/31/2017 Telephone [facility] [address] [phone] Nicolette Laura, RT [address] [place] [address] Follow-up (cc, lvm) Social History Tobacco Use [...] on filedocumented in this encounter Care Teams Parachute Inspector Relationship Specialty Start Date End Date Pcp, No PCP - General General Medicine 05/28/17 documented as of this encounter
== END 2025-01-21 15:22 | disposition home or self-care (01) ==
LOC: HO.HNS 13:50
PROVIDERS: Visit Provider Physician Assistant
DX: M54.12 Radiculopathy, cervical region (principal)
CPT/HCPCS: 99024

== ENCOUNTER 2025-03-04 11:55 | Outpatient (REF) | payer OTHER, SELFPAY ==
--- NOTE | ~2025-03-04 | XR_ITS ---
EXAMINATION: XR CERVICAL SPINE CLINICAL INFORMATION: M54.12 - Radiculopathy, cervical region COMPARISON: November 21, 2024. TECHNIQUE: Lateral views in neutral, flexion and extension position. AP view. FINDINGS: Status post anterior intervertebral disc spacer placement C4-5 C5-6 level. Marginal osteophyte formation and endplate sclerosis and decreased intervertebral disc height at C6-7 and C3-4. Grade 1 retrolisthesis at C3-4 in neutral position which persists during flexion and extension position. Normal alignment between C4-5 and C5-6 level without motion during flexion and/or extension position. Craniocervical junction is intact. No lytic or blastic lesions. XR/XR cervical spine 4V IMPRESSION: Status post anterior intervertebral body disc spacer placement C4-5 and C5-6 with normal alignment and or instability. Spondylosis at C3-4 and C6-7. Grade 1 retrolisthesis C3-4 without instability. Electronically signed by: Carlos Grewal MD 03/04/2025 03:00 PM EDT
--- OUTSIDE RECORDS SUMMARY | 2025-03-05 13:38 | XMS_ITS | Encounter Summary ---
Author Organization [facility] Address [address] [place] [address] Care Team Providers Care Clinical Laboratory Service Teacher Name Role Phone Pcp, No Primary Care Provider Unavailabl e Reason for Visit * Reason Onset Date Comments Follow-up 05/31/2017 cc, lvm Encounter Details Date Type Department Care Team (Late st Contact Info) Description 05/31/2017 Telephone [facility] [address] [phone] Nicolette Laura, RT [address] [place] [address] Follow-up (cc, lvm) Social History Tobacco Use [...] on filedocumented in this encounter Care Teams Clinical Laboratory Service Teacher Relationship Specialty Start Date End Date Pcp, No PCP - General General Medicine 05/28/17 documented as of this encounter
--- OUTSIDE RECORDS SUMMARY | 2025-03-05 13:38 | XMS_ITS | Clinical Summary ---
Author Organization [facility] Address [address] [place] [address] Care Team Providers Care Business Continuity Global Director Name Role Phone Pcp, No Primary Care [...] OUT OF STATE - HMO Care Teams Business Continuity Global Director Relationship Specialty Start Date End Date Pcp, No PCP - General General Medicine 05/28/17
== END 2025-03-04 11:56 | disposition home or self-care (01) ==
LOC: HO.HOSX 11:55
PROVIDERS: Visit Provider Physician Assistant
DX: Z47.89 Encounter for other orthopedic aftercare (principal); M54.12 Radiculopathy, cervical region; Z98.890 Other specified postprocedural states
CPT/HCPCS: 72050

== ENCOUNTER 2025-03-04 13:56 | Outpatient (AMB) | payer OTHER, SELFPAY ==
--- NOTE | 2025-03-04 14:14 | A.SPINEOV_ITS ---
Intake Visit Reasons: 2nd post op Xray Allergies amoxicillin Allergy (Intermediate, Verified 03/04/25 14:15) Vomiting Assessment & Plan Assessment & Plan (1) Cervical radiculopathy: Code(s): M54.12 - Radiculopathy, cervical region Category: Medical Plan Procedure: C4-5, C5-6 ACDF Cristy is a pleasant 60 year old female who comes in today for her 2nd postoperative appointment after having C4-6 ACDF completed on 12/31/[address] Maldonado. She had a somewhat complicated postoperative course, see previous office visit for details regarding this. To recap she was doing fairly well during her last office visit, reported about 50% overall pain reduction alongside increase functional activity throughout the day. Thankfully, she continues to report meaningful improvement of her pain overall. She rates her pain as a 2/10 when she does get pain. She is back to work, working full-time. She did report that she has had some headaches and posterior neck pain that persists. She also reported a new pain in her right arm near the lateral triceps. She denies any shooting pains down her arm. She did express concerns that this may be related to continue or new cervical nerve impingement. She obtained a set of x-rays of her cervical spine during this visit today which shows stable placement of her surgical construct with no changes from fluorosc opy. No new neurological deficits. The patient ambulates well and rises from seated position without difficulty. Her anterior incision site is closed and well healing. I would like to send Crsity for a EMG of the upper extremities to r/o a persistent cervical radiculopathy vs. other impingement injury. I will call her with the results of the EMG. Bird Maldonado MD,PhD [facility] Orders: Orders NE electromyogram (EMG) Today M54.12 - Radiculopathy, cervical region XR cervical spine 4V Today M54.12 - Radiculopathy, cervical region Coding Level of Care Code Global (18287) Diagnoses Cervical radiculopathy M54.12
--- NOTE | 2025-03-04 14:14 | HO.SPINEOV ---
Intake Visit Reasons: 2nd post op Xray Intake Note: Ms. Patino is here today for her 2nd post op with x-ray. Parts Fabricator Required: No Allergies amoxicillin Allergy (Intermediate, Verified 03/04/25 14:15) Vomiting Assessment & Plan Assessment & Plan Orders: Orders XR cervical spine 4V Today M54.12 - Radiculopathy, cervical region Coding
--- OUTSIDE RECORDS SUMMARY | 2025-03-04 15:10 | XMS_ITS | Encounter Summary ---
Author Organization [facility] Address [address] [place] [address] Care Team Providers Care Slotter Operator Helper Name Role Phone Pcp, No Primary Care Provider Unavailabl e Reason for Visit * Reason Onset Date Comments Follow-up 05/31/2017 cc, lvm Encounter Details Date Type Department Care Team (Late st Contact Info) Description 05/31/2017 Telephone [facility] [address] [phone] Nicolette Laura, RT [address] [place] [address] Follow-up (cc, lvm) Social History Tobacco Use [...] on filedocumented in this encounter Care Teams Slotter Operator Helper Relationship Specialty Start Date End Date Pcp, No PCP - General General Medicine 05/28/17 documented as of this encounter
--- OUTSIDE RECORDS SUMMARY | 2025-03-04 15:10 | XMS_ITS | Clinical Summary ---
Author Organization [facility] Address [address] [place] [address] Care Team Providers Care Patient Coordinator Name Role Phone Pcp, No Primary Care [...] 77 05/28/2017 12:40 PM EST Temperature 37.1 C (98.8 F) 05/28/2017 12:40 PM EST Respiratory Rate - - Oxygen Saturation 98% [...] Zoster (Shingles) Vaccine (1 of 2) 01/03/2016 Influenza Vaccine 2025 COVID-19 Vaccine ( - 2023- season) 2025 Insurance BLUE CROSS OUT OF STATE - HMO Care Teams Patient Coordinator Relationship Specialty Start Date End Date Pcp, No PCP - General General Medicine 05/28/17
== END 2025-03-04 14:27 | disposition home or self-care (01) ==
LOC: HO.HNS 13:56
PROVIDERS: Visit Provider Physician Assistant
DX: M54.12 Radiculopathy, cervical region (principal)
CPT/HCPCS: 99024

== ENCOUNTER → 2025-03-04 14:01 | Outpatient (BNV) | payer OTHER, SELFPAY | PROVIDERS: Visit Provider Radiology Diagnostic Radiology | DX: M47.22 Other spondylosis with radiculopathy, cervical region (principal) | CPT/HCPCS: 72050 ==